=== PATIENT | male | born 1940 | race Caucasian/White ===

== ENCOUNTER 2016-11-26 07:54 | Day surgery (SDC) | payer OTHER ==
[~2016-11-26 07:54] MED LIST: ASPIRIN325 MG PO; BEE CAPS PO; IBUPROFEN400 MG PO; LOVASTATIN20 MG PO; NIACIN ER500 MG PO; PANTOPRAZOLE SO40 MG PO; TOPROL XL25 MG PO
[2016-11-26] MEDS ORDERED: NORCO1 TA1 PO (12:26)
--- NOTE | 2016-11-26 12:27 | Provider's Discharge Care Plan ---
Problem, Goal, Plan Problem List 1. Left inguinal hernia
--- NOTE | 2016-11-26 12:27 | Provider's Discharge Care Plan ---
Problem, Goal, Plan Problem List 1. Left inguinal hernia
--- NOTE | 2016-11-26 15:28 | OPERATIVE REPORT ---
DATE OF SURGERY: 11/26/2016 SURGEON: Gustabo Kellogg MD PREOPERATIVE DIAGNOSIS: 1. Left inguinal hernia POSTOPERATIVE DIAGNOSIS: 1. Left inguinal hernia PROCEDURE PERFORMED: 1. Left inguinal herniorrhaphy. ANESTHESIA: Local and total IV general. INDICATIONS: The patient is a 76-year-old man with a longstanding and enlarging left inguinal hernia. SURGICAL TECHNIQUE: The patient was taken to the operating room where total IV general sedation was administered and the patient prepped and draped in the usual sterile fashion. He received IV antibiotic. A local anesthetic of 0.5% Marcaine with epinephrine and 1% Xylocaine was infiltrated, and a transverse incision was made. This was carried down through skin and subcutaneous tissue with sharp and electrocautery dissection. The external oblique was identified and opened, and the underlying ilioinguinal nerve was identified and preserved. There was a large fibrotic hernia occupying the entire groin floor, which was carefully dissected away from the cord structures and the inguinal nerve. The hernia sac was large and leathery. It was turned inward and imbricated, and 2 rows of running 2-0 polypropylene suture were performed to flatten out the groin floor. A piece of woven polypropylene mesh was tailored to suit the inguinal floor and split laterally. It was sutured along its edges with running 3-0 Prolene suture. The lateral margin ends were approximated with single [id number] 3-0 Prolene. The wound was copiously irrigated and the external oblique was closed with running 3-0 Vicryl. The skin was closed with running subcuticular 4-0 Vicryl suture and Steri-Strips. Dressings were applied and the patient left in stable condition. No intraoperative complications were encountered.
== END 2016-11-26 15:00 | disposition home or self-care (01) ==
LOC: OR SRH 07:54 → SCU SRH 08:08 → OB SRH 09:32
PROVIDERS: Surgery
PROC: 0YU60JZ Supplement Left Inguinal Region with Synthetic Substitute, Open Approach (ICD-10-PCS; principal; 2016-11-26 10:00)
DX: K40.90 Unilateral inguinal hernia, without obstruction or gangrene, not specified as recurrent (principal); I10 Essential (primary) hypertension; Z72.0 Tobacco use